=== PATIENT | male | born 1950 | race Caucasian/White ===

== ENCOUNTER 2017-02-11 09:49 | Outpatient (CLI) | payer MEDICARE, BC, OTHER ==
[2017-02-11 10:26] LABS: BASOPHILS % (AUTO) 0.2 %; EOSINOPHILS % (AUTO) 0.9 %; HGB - HEMOGLOBIN 12.3 g/dL (14.0-18.0); LYMPHOCYTES % (AUTO) 25.8 %; MEAN CORPUSCULAR HEMOGLOBIN 26.9 pg (27.0-31.0); MEAN CORPUSCULAR HGB CONC 33.4 g/dL (32.0-36.0); MEAN CORPUSCULAR VOLUME 80.5 fL (80.0-94.0); MEAN PLATELET VOLUME 6.8 fL (7.4-11.4); MONOCYTES % (AUTO) 1.1 %; NEUTROPHILS # (AUTO) 2.9 10^3/uL (1.5-6.6); PLT - PLATELET COUNT 183 10^3/uL (130-450); RED BLOOD COUNT 4.59 10^6/uL (4.70-6.10); RED CELL DISTRIBUTION WIDTH 17.8 % (12.0-15.0)
[2017-02-11 10:31] LABS: ALBUMIN/GLOBULIN RATIO 1.1 (1.0-2.2); ALKALINE PHOSPHATASE 82 IU/L (42-121); ALT ALANINE AMINOTRANSFERASE 14 IU/L (10-60); AST ASPARTATE AMINOTRANSFERASE 16 IU/L (10-42); BILIRUBIN,TOTAL 0.6 mg/dL (0.2-1.0); BUN - BLOOD UREA NITROGEN 16 mg/dL (6-20); CARBON DIOXIDE - CO2 26 mmol/L (21-32); CHLORIDE 104 mmol/L (101-111); CHOL/HDL RATIO 3.8 (<5.0); CHOLESTEROL 165 mg/dL; GFR - MDRD 75 (>89); GLUCOSE 93 mg/dL (70-100); HDL CHOLESTEROL 43 mg/dL; LDL CHOLESTEROL,CALCULATED 103 mg/dL; LDL/HDL RATIO 2.4 (<3.6); SODIUM 138 mmol/L (135-145); TOTAL PROTEIN 7.5 g/dL (6.7-8.2); VLDL CHOLESTEROL 19 mg/dL
[2017-02-12 13:36] LABS: HEPATITIS C ANTIBODY REACTIVE (NON-REACTIVE)
[2017-02-14 13:21] LABS: HCV RNA QNT <1.18 NOT DETECTED Log IU/mL (<1.18); HCV RNA QUANT RT PCR <15 NOT DETECTED IU/mL (<15)
== END 2017-02-11 09:50 | disposition home or self-care (01) ==
LOC: LAB 09:49
PROVIDERS: ATTEND Internal Medicine
DX: C91.40 Hairy cell leukemia not having achieved remission (principal); E78.5 Hyperlipidemia, unspecified; J30.9 Allergic rhinitis, unspecified; K21.9 Gastro-esophageal reflux disease without esophagitis; Z72.89 Other problems related to lifestyle
CPT/HCPCS: 36415; 80053; 80061; 85025; 86803

== ENCOUNTER 2017-02-17 08:00 | Outpatient (CLI) | payer MEDICARE, BC, OTHER | END 2017-02-17 08:01 | disposition home or self-care (01) | LOC: LAB.WCP 08:00 | PROVIDERS: ATTEND Dentist General Practice | DX: Z01.89 Encounter for other specified special examinations (principal) ==

== ENCOUNTER 2018-03-03 08:18 | Outpatient (CLI) | payer MEDICARE, BC, OTHER ==
[2018-03-03 08:36] LABS: BASOPHILS % (AUTO) 0.3 %; EOSINOPHILS % (AUTO) 1.1 %; HGB - HEMOGLOBIN 11.8 g/dL (14.0-18.0); LYMPHOCYTES # (AUTO) 0.9 10^3/uL (1.5-3.5); MEAN CORPUSCULAR HEMOGLOBIN 26.6 pg (27.0-31.0); MEAN CORPUSCULAR HGB CONC 33.5 g/dL (32.0-36.0); MEAN CORPUSCULAR VOLUME 79.6 fL (80.0-94.0); MEAN PLATELET VOLUME 6.6 fL (7.4-11.4); MONOCYTES % (AUTO) 1.5 %; NEUTROPHILS # (AUTO) 2.3 10^3/uL (1.5-6.6); NEUTROPHILS % (AUTO) 69.1 %; PLT - PLATELET COUNT 189 10^3/uL (130-450); RED BLOOD COUNT 4.44 10^6/uL (4.70-6.10); RED CELL DISTRIBUTION WIDTH 18.7 % (12.0-15.0); WHITE BLOOD COUNT 3.3 x10^3/uL (4.8-10.8)
[2018-03-03 08:57] LABS: ALBUMIN 3.9 g/dL (3.2-5.5); ALBUMIN/GLOBULIN RATIO 1.1 (1.0-2.2); ALKALINE PHOSPHATASE 72 IU/L (42-121); ALT ALANINE AMINOTRANSFERASE 15 IU/L (10-60); AST ASPARTATE AMINOTRANSFERASE 16 IU/L (10-42); BILIRUBIN,TOTAL 0.7 mg/dL (0.2-1.0); BUN - BLOOD UREA NITROGEN 17 mg/dL (6-20); CARBON DIOXIDE - CO2 26 mmol/L (21-32); CHLORIDE 102 mmol/L (101-111); CHOL/HDL RATIO 3.7 (<5.0); CHOLESTEROL 165 mg/dL; CREATININE 1.1 mg/dL (0.6-1.2); GFR - MDRD 67 (>89); GLUCOSE 91 mg/dL (70-100); HDL CHOLESTEROL 45 mg/dL; LDL CHOLESTEROL,CALCULATED 103 mg/dL; LDL/HDL RATIO 2.3 (<3.6); SODIUM 137 mmol/L (135-145); TOTAL PROTEIN 7.3 g/dL (6.7-8.2); VLDL CHOLESTEROL 17 mg/dL
[2018-03-04 13:46] LABS: HEPATITIS C ANTIBODY REACTIVE (NON-REACTIVE)
== END 2018-03-03 08:19 | disposition home or self-care (01) ==
LOC: LAB 08:18
PROVIDERS: ATTEND Internal Medicine
DX: C91.40 Hairy cell leukemia not having achieved remission (principal); E78.5 Hyperlipidemia, unspecified; R89.9 Unspecified abnormal finding in specimens from other organs, systems and tissues
CPT/HCPCS: 36415; 80053; 80061; 83721; 85025; 86803

== ENCOUNTER 2019-08-01 09:18 | Outpatient (CLI) | payer MEDICARE, BC, OTHER ==
[2019-08-01 12:28] LABS: BASOPHILS % (AUTO) 0.3 %; EOSINOPHILS % (AUTO) 0.9 %; HGB - HEMOGLOBIN 11.8 g/dL (14.0-18.0); LYMPHOCYTES % (AUTO) 28.1 %; MEAN CORPUSCULAR HEMOGLOBIN 26.5 pg (27.0-31.0); MEAN CORPUSCULAR HGB CONC 31.4 g/dL (32.0-36.0); MEAN CORPUSCULAR VOLUME 84.3 fL (80.0-94.0); MEAN PLATELET VOLUME 9.8 fL (7.4-11.4); MONOCYTES # (AUTO) 0.1 10^3/uL (0.0-1.0); MONOCYTES % (AUTO) 1.7 %; NEUTROPHILS # (AUTO) 2.4 10^3/uL (1.5-6.6); NEUTROPHILS % (AUTO) 68.7 %; PLT - PLATELET COUNT 161 10^3/uL (130-450); RED BLOOD COUNT 4.46 10^6/uL (4.70-6.10); RED CELL DISTRIBUTION WIDTH 16.5 % (12.0-15.0); WHITE BLOOD COUNT 3.5 x10^3/uL (4.8-10.8)
[2019-08-01 13:03] LABS: ALBUMIN 3.8 g/dL (3.2-5.5); ALBUMIN/GLOBULIN RATIO 1.1 (1.0-2.2); ALKALINE PHOSPHATASE 72 IU/L (42-121); ALT ALANINE AMINOTRANSFERASE 13 IU/L (10-60); AST ASPARTATE AMINOTRANSFERASE 14 IU/L (10-42); BILIRUBIN,TOTAL 0.8 mg/dL (0.2-1.0); BUN - BLOOD UREA NITROGEN 17 mg/dL (6-20); CALCIUM 9.5 mg/dL (8.5-10.3); CARBON DIOXIDE - CO2 27 mmol/L (21-32); CHLORIDE 99 mmol/L (101-111); CHOL/HDL RATIO 4.2 (<5.0); CHOLESTEROL 166 mg/dL; CREATININE 1.1 mg/dL (0.6-1.2); GLUCOSE 92 mg/dL (70-100); HDL CHOLESTEROL 40 mg/dL; LDL CHOLESTEROL,CALCULATED 102 mg/dL; LDL/HDL RATIO 2.6 (<3.6); SODIUM 140 mmol/L (135-145); TOTAL PROTEIN 7.2 g/dL (6.7-8.2); VLDL CHOLESTEROL 24 mg/dL
== END 2019-08-01 23:59 | disposition home or self-care (01) ==
LOC: LAB.WCP 09:18
PROVIDERS: ATTEND Nurse Practitioner Family
DX: E78.5 Hyperlipidemia, unspecified (principal); C91.40 Hairy cell leukemia not having achieved remission
CPT/HCPCS: 36415; 80053; 80061; 83721; 85025

== ENCOUNTER 2019-12-22 11:56 | Outpatient (CLI) | payer MEDICARE, BC, OTHER ==
[2019-12-22 12:56] LABS: THYROID STIMULATING HORMONE 1.35 uIU/mL (0.34-5.60)
[2019-12-22 12:58] LABS: FREE T3 2.87 pg/mL (2.5-3.9); FREE T4 (FREE THYROXINE) 0.9 ng/dL (0.58-1.64)
== END 2019-12-22 11:57 | disposition home or self-care (01) ==
LOC: LAB 11:56
PROVIDERS: ATTEND Family Medicine
DX: R06.09 Other forms of dyspnea (principal); M45.9 Ankylosing spondylitis of unspecified sites in spine; N52.9 Male erectile dysfunction, unspecified
CPT/HCPCS: 36415; 83880; 84403; 84439; 84443; 84481; 85651; 86140

== ENCOUNTER 2020-03-20 14:59 | Outpatient (CLI) | payer MEDICARE, BC, OTHER ==
--- NOTE | 2020-03-20 15:34 | XRAY Report ---
PROCEDURE: Chest 2 View X-Ray INDICATIONS: OTHER FORMS OF DYSPNEA TECHNIQUE: 2 view(s) of the chest. COMPARISON: 12/27/2013. FINDINGS: Surgical changes and devices: None. Lungs and pleura: No pleural effusions or pneumothorax. Lungs are clear. Mediastinum: Mediastinal contours are normal. Heart size is normal. Bones and chest wall: No suspicious bony abnormalities. Soft tissues appear unremarkable. Diffuse osteopenia. Multilevel thoracic spondylosis. No acute compression fractures noted. IMPRESSION: Chest without acute cardiopulmonary abnormalities. Reviewed by: Magdaleno Watters MD on 03/20/2020 3:33 PM PST Approved by: Magdaleno Watters MD on 03/20/2020 3:33 PM PST Station ID: [id number]
== END 2020-03-20 15:00 | disposition home or self-care (01) ==
LOC: DI 14:59
PROVIDERS: ATTEND Family Medicine
DX: R06.09 Other forms of dyspnea (principal)

== ENCOUNTER 2020-06-22 08:50 | Outpatient (CLI) | payer MEDICARE, BC, OTHER ==
[2020-06-22 09:26] LABS: EOSINOPHILS # (AUTO) 0.1 10^3/uL (0.0-0.7); EOSINOPHILS % (AUTO) 1.6 %; HCT - HEMATOCRIT 36.3 % (42.0-52.0); HGB - HEMOGLOBIN 11.7 g/dL (14.0-18.0); LYMPHOCYTES # (AUTO) 0.7 10^3/uL (1.5-3.5); LYMPHOCYTES % (AUTO) 21.8 %; MEAN CORPUSCULAR HEMOGLOBIN 26.8 pg (27.0-31.0); MEAN CORPUSCULAR HGB CONC 32.2 g/dL (32.0-36.0); MEAN CORPUSCULAR VOLUME 83.3 fL (80.0-94.0); MEAN PLATELET VOLUME 8.3 fL (7.4-11.4); MONOCYTES # (AUTO) 0.1 10^3/uL (0.0-1.0); MONOCYTES % (AUTO) 1.9 %; NEUTROPHILS # (AUTO) 2.4 10^3/uL (1.5-6.6); NEUTROPHILS % (AUTO) 74.4 %; PLT - PLATELET COUNT 160 10^3/uL (130-450); RED BLOOD COUNT 4.36 10^6/uL (4.70-6.10); RED CELL DISTRIBUTION WIDTH 16.8 % (12.0-15.0); WHITE BLOOD COUNT 3.2 x10^3/uL (4.8-10.8)
[2020-06-22 09:45] LABS: ALBUMIN/GLOBULIN RATIO 1.3 (1.0-2.2); BILIRUBIN,TOTAL 0.6 mg/dL (0.2-1.0); POTASSIUM 4.3 mmol/L (3.5-5.0); TOTAL PROTEIN 7.2 g/dL (6.7-8.2)
[2020-06-22 10:01] LABS: THYROID STIMULATING HORMONE 1.82 uIU/mL (0.34-5.60)
== END 2020-06-22 08:51 | disposition home or self-care (01) ==
LOC: LAB 08:50
PROVIDERS: ATTEND Family Medicine
DX: E29.1 Testicular hypofunction (principal); M62.81 Muscle weakness (generalized)
CPT/HCPCS: 36415; 80053; 84403; 84443; 85025

== ENCOUNTER 2020-09-17 07:45 | Outpatient (CLI) | payer MEDICARE, BC, OTHER ==
[2020-09-17 08:24] LABS: BUN - BLOOD UREA NITROGEN 18 mg/dL (6-20); CARBON DIOXIDE - CO2 26 mmol/L (21-32); CHLORIDE 106 mmol/L (101-111); CHOL/HDL RATIO 4.4 (<5.0); CHOLESTEROL 183 mg/dL; GFR - MDRD 74 (>89); GLUCOSE 95 mg/dL (70-100); HDL CHOLESTEROL 42 mg/dL; LDL CHOLESTEROL,CALCULATED 123 mg/dL; LDL/HDL RATIO 2.9 (<3.6); POTASSIUM 4.2 mmol/L (3.5-5.0); SODIUM 139 mmol/L (135-145); TRIGLYCERIDES 88 mg/dL; VLDL CHOLESTEROL 18 mg/dL
== END 2020-09-17 07:46 | disposition home or self-care (01) ==
LOC: LAB 07:45
PROVIDERS: ATTEND Family Medicine
DX: E29.1 Testicular hypofunction (principal); E78.5 Hyperlipidemia, unspecified
CPT/HCPCS: 36415; 80048; 80061; 83721; 84403

== ENCOUNTER 2020-12-13 08:00 | Outpatient (CLI) | payer MEDICARE, BC, OTHER ==
[2020-12-13 12:06] LABS: BASOPHILS % (AUTO) 0.3 %; EOSINOPHILS % (AUTO) 1.3 %; HCT - HEMATOCRIT 38.8 % (42.0-52.0); HGB - HEMOGLOBIN 12.2 g/dL (14.0-18.0); LYMPHOCYTES # (AUTO) 0.8 10^3/uL (1.5-3.5); LYMPHOCYTES % (AUTO) 24.8 %; MEAN CORPUSCULAR HEMOGLOBIN 26.9 pg (27.0-31.0); MEAN CORPUSCULAR HGB CONC 31.4 g/dL (32.0-36.0); MEAN CORPUSCULAR VOLUME 85.7 fL (80.0-94.0); MEAN PLATELET VOLUME 9.7 fL (7.4-11.4); MONOCYTES # (AUTO) 0.1 10^3/uL (0.0-1.0); MONOCYTES % (AUTO) 2.2 %; NEUTROPHILS # (AUTO) 2.3 10^3/uL (1.5-6.6); NEUTROPHILS % (AUTO) 71.1 %; PLT - PLATELET COUNT 183 10^3/uL (130-450); RED BLOOD COUNT 4.53 10^6/uL (4.70-6.10); RED CELL DISTRIBUTION WIDTH 16.3 % (12.0-15.0); WHITE BLOOD COUNT 3.2 x10^3/uL (4.8-10.8)
[2020-12-13 13:25] LABS: THYROID STIMULATING HORMONE 2.12 uIU/mL (0.34-5.60)
[2020-12-13 13:28] LABS: ALBUMIN 3.9 g/dL (3.2-5.5); ALBUMIN/GLOBULIN RATIO 1.2 (1.0-2.2); ALKALINE PHOSPHATASE 74 IU/L (42-121); ALT ALANINE AMINOTRANSFERASE 15 IU/L (10-60); AST ASPARTATE AMINOTRANSFERASE 16 IU/L (10-42); BILIRUBIN,TOTAL 0.7 mg/dL (0.2-1.0); BUN - BLOOD UREA NITROGEN 22 mg/dL (6-20); CALCIUM 9.1 mg/dL (8.5-10.3); CARBON DIOXIDE - CO2 28 mmol/L (21-32); CHLORIDE 103 mmol/L (101-111); CHOL/HDL RATIO 4.4 (<5.0); CHOLESTEROL 186 mg/dL; CREATININE 1.1 mg/dL (0.6-1.2); GFR - MDRD 66 (>89); GLUCOSE 94 mg/dL (70-100); HDL CHOLESTEROL 42 mg/dL; LDL CHOLESTEROL,CALCULATED 123 mg/dL; LDL/HDL RATIO 2.9 (<3.6); POTASSIUM 4.2 mmol/L (3.5-5.0); SODIUM 140 mmol/L (135-145); TOTAL PROTEIN 7.1 g/dL (6.7-8.2); TRIGLYCERIDES 105 mg/dL; VLDL CHOLESTEROL 21 mg/dL
== END 2020-12-13 23:59 | disposition home or self-care (01) ==
LOC: LAB.WCP 08:00
PROVIDERS: ATTEND Family Medicine
DX: R53.81 Other malaise (principal); E29.1 Testicular hypofunction; C91.40 Hairy cell leukemia not having achieved remission; M45.9 Ankylosing spondylitis of unspecified sites in spine; E78.5 Hyperlipidemia, unspecified; K21.9 Gastro-esophageal reflux disease without esophagitis
CPT/HCPCS: 36415; 80053; 80061; 83721; 84153; 84403; 84443; 85025

== ENCOUNTER 2022-11-19 15:01 | Outpatient (CLI) | payer MEDICARE, BC ==
--- NOTE | 2022-11-19 17:59 | XRAY Report ---
PROCEDURE: Knee 4 View RT INDICATIONS: DJD,KNEE TECHNIQUE: 4 views of the right knee(s) were acquired. COMPARISON: None. FINDINGS: Bones: Mild to moderate degenerative changes, particularly the medial compartment and patellofemoral compartment. No displaced fracture or dislocation. Soft tissues: Possible small knee joint effusion. IMPRESSION: Mild to moderate degenerative changes. If there is high concern for further derangement, consider MRI evaluation. Reviewed by: Shady Tracy MD on 11/19/2022 5:58 PM PDT Approved by: Shady Tracy MD on 11/19/2022 5:58 PM PDT Station ID: [id number]
== END 2022-11-19 15:02 | disposition home or self-care (01) ==
LOC: DI.S 15:01 → MERGE 15:01 → DI.S 15:02
PROVIDERS: ATTEND Nurse Practitioner
DX: M17.11 Unilateral primary osteoarthritis, right knee (principal)

== ENCOUNTER 2023-01-21 08:00 | Outpatient (CLI) | payer MEDICARE, BC, OTHER | END 2023-01-21 23:59 | disposition home or self-care (01) | LOC: LAB 08:00 | PROVIDERS: ATTEND Nurse Practitioner | DX: Z48.817 Encounter for surgical aftercare following surgery on the skin and subcutaneous tissue (principal) | CPT/HCPCS: 87070; 87205 ==

== ENCOUNTER 2023-04-28 07:49 | Outpatient (CLI) | payer MEDICARE, OTHER ==
--- NOTE | 2023-04-28 07:46 | CARDIAC PROCEDURE NOTE ---
Stress Test Report Service Date: 04/28/23 Service Time: 08:00 Ordering Provider: Tahira Bishop ARNP Indication for Test: Assess exertional dyspnea. Significant Medical History: Daniel is referred for a treadmill stress echocardiogram today, to assess his exertional dyspnea. This is a chronic problem which was evaluated with a treadmill stress myocardial perfusion imaging study in February 2014, that demonstrated no evidence of ischemia. He tells me that the symptoms have worsened over the past few months. 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 He reports experiencing dyspnea, typically at the beginning of exercise, and sometimes he is able to regain a level of comfort and continue for more extended periods, but sometimes he develops lightheadedness and has to markedly reduce the intensity of his exercise. 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 He denies associated chest discomfort at any time with the shortness of breath. He has stage IV Sidhu's esophagus and is on 2 antiacid medications with some intermittent dyspepsia. He has been on aspirin that was recommended 15 to 20 years ago as a primary preventive for cardiovascular disease. Cardiac Risk Factors: Positive for hyperlipemia and family history of CAD in father; negative for history of hypertension, diabetes and significant tobacco smoking history (quit 35 yrs ago). Type of Stress Test: ETT with Echocardiography Procedure: -Exercise Treadmill Test- After signing informed consent, the patient underwent echo imaging at rest and then performed treadmill exercise using a Sreedhar protocol. The patient exercised for exactly 5 minutes and achieved a peak heart rate of 136 (92 percent predicted maximum heart rate for age), and an estimated workload of 7.0 METS. The test was terminated due to fatigue/shortness of breath. Resting heart rate: 82 Peak heart rate: 136 Normal response to exercise. Resting BP: 121/68 Peak BP: 164/65 Normal response of systolic and diastolic BPs to exercise. Room air oxygen saturation remained between 98-99%. Rhythm during exercise: Sinus rhythm throughout, with occasional isolated PVCs (49 total). Symptoms: The patient reported bilateral shoulder tightness in stage I of exercise followed by a feeling of his "lungs burning" in stage II. Progressive dyspnea became limiting. EKG at rest showed normal sinus rhythm with diffusely low QRS voltages, with possible left atrial abnormality, and with interpretable ST/T pattern throughout. EKG at peak stress showed no ischemia by EKG criteria. In Recovery HR rapidly/normally decreased toward resting level with slower decrease in BP. Echo imaging, performed at rest and with stress, will be reported separately. Pedro Mason MD, was present throughout this treadmill stress study and supervised it in its entirety. Summary: 1) Exercise tolerance significantly reduced for age and sex as evidenced by DEVON of 17%. 2) Normal/interpretable resting EKG. 3) Adequate level of exercise was achieved on this treadmill stress test. 4) Normal BP response to exercise. 5) No ischemic changes by EKG criteria were seen at peak stress. 6) Interpretation of technically suboptimal echo images reveals normal left ventricular size, wall thickness and systolic function, with appropriate hyperdynamic augmentation of all segments with exercise, indicating no evidence of prior infarct or inducible ischemia. Given that some views were obtained at sub-diagnostic heart rates, the possibility of ischemia at higher rates cannot be excluded. No significant valvular abnormality or elevation of estimated pulmonary artery systolic pressure seen on screening study. See separate report for more details. Conclusions and Recommendations: 1) Troy demonstrated reduced exercise time due to dyspnea, without EKG or echocardiographic evidence of inducible ischemia. 2) We discussed exposures many years ago to tobacco smoke and radiation as possible contributors to chronic lung disease, which might be further elucidated with formal pulmonary function testing, which he has not had in the past. 3) Although a daily baby ASA was recommended many years ago for primary prevention, subsequent data interpretation has concluded a lack of benefit and it could possibly have adverse effects on his erosive GIT disease and blood dyscrasia, so it should likely be discontinued.
== END 2023-04-28 07:50 | disposition home or self-care (01) ==
LOC: DI 07:49
PROVIDERS: ATTEND Nurse Practitioner
DX: R06.02 Shortness of breath (principal); E78.5 Hyperlipidemia, unspecified; Z82.49 Family history of ischemic heart disease and other diseases of the circulatory system; Z87.891 Personal history of nicotine dependence
CPT/HCPCS: 93350

== ENCOUNTER 2023-06-01 12:45 | Outpatient (CLI) | payer MEDICARE, OTHER ==
[2023-06-01] MEDS: ALBUTEROL 1 PUFF INH STA (14:16)
== END 2023-06-01 12:46 | disposition home or self-care (01) ==
LOC: RT 12:45
PROVIDERS: ATTEND Nurse Practitioner
DX: R06.02 Shortness of breath (principal)
CPT/HCPCS: 94060; 94729

== ENCOUNTER 2023-06-30 14:29 | Outpatient (CLI) | payer MEDICARE, OTHER ==
--- NOTE | 2023-06-30 21:42 | CT Report ---
PROCEDURE: Chest WO INDICATIONS: SHORT OF BREATH TECHNIQUE: A CT scan of the chest was performed. Intravenous contrast media was not administered. Images were re corded and evaluated at appropriate window settings. Reformats: axial MIP of the chest, coronal and s agittal. For radiation dose reduction, the following was used: automated exposure control, adjustment of mA and/or kV according to patient size. COMPARISON: Chest x-ray 03/20/2020, CT chest 01/29/2015 FINDINGS: Image quality: Diagnostic. Chest wall and lower neck: No thyroid nodule which requires sonographic follow up. No axillary or sup raclavicular adenopathy by size. Lungs and pleura: No consolidation. No pleural effusions. No pneumothorax. No suspicious pulmonary n odules which require follow up. Mediastinum: Heart size is normal. No pericardial effusion. No large vessel abnormality. No mediastin al adenopathy by size criteria. Bones: No aggressive osseous abnormality. Upper Abdomen: Unremarkable. IMPRESSION: Lungs are clear. Reviewed by: Carmen Gipson MD on 06/30/2023 9:41 PM PDT Approved by: Carmen Gipson MD on 06/30/2023 9:41 PM PDT Station ID: [id number]
== END 2023-06-30 14:30 | disposition home or self-care (01) ==
LOC: DI 14:29
PROVIDERS: ATTEND Nurse Practitioner
DX: R06.02 Shortness of breath (principal)

== ENCOUNTER 2023-10-01 08:00 | Outpatient (CLI) | payer MEDICARE, OTHER | END 2023-10-01 23:59 | disposition home or self-care (01) | LOC: LAB.N 08:00 | PROVIDERS: ATTEND Physician Assistant Medical | DX: S91.302A Unspecified open wound, left foot, initial encounter (principal) | CPT/HCPCS: 87070; 87205 ==

== ENCOUNTER 2023-10-06 11:17 | Outpatient (CLI) | payer MEDICARE, OTHER ==
[2023-10-06 11:31] LABS: BILIRUBIN,URINE NEGATIVE (NEGATIVE); GLUCOSE, URINE (UA) NEGATIVE (NEGATIVE); KETONES,URINE (UA) NEGATIVE (NEGATIVE); LEUKOCYTE ESTERASE, URINE NEGATIVE (NEGATIVE); NITRITE,URINE NEGATIVE (NEGATIVE); OCCULT BLOOD,URINE NEGATIVE (NEGATIVE); PROTEIN,URINE NEGATIVE (NEGATIVE); UROBILINOGEN,URINE 0.2 (NORMAL) E.U./dL (NORMAL)
[2023-10-06 11:33] LABS: EOSINOPHILS % (AUTO) 0.4 %; HCT - HEMATOCRIT 35.2 % (42.0-52.0); HGB - HEMOGLOBIN 11.2 g/dL (14.0-18.0); LYMPHOCYTES # (AUTO) 0.4 10^3/uL (1.5-3.5); MEAN CORPUSCULAR HEMOGLOBIN 27.2 pg (27.0-31.0); MEAN CORPUSCULAR HGB CONC 31.8 g/dL (32.0-36.0); MEAN CORPUSCULAR VOLUME 85.4 fL (80.0-94.0); MONOCYTES % (AUTO) 1.2 %; PLT - PLATELET COUNT 192 10^3/uL (130-450); RED BLOOD COUNT 4.12 10^6/uL (4.70-6.10); RED CELL DISTRIBUTION WIDTH 15.9 % (12.0-15.0); WHITE BLOOD COUNT 2.4 x10^3/uL (4.8-10.8)
[2023-10-06 11:36] LABS: SLIDE REVIEW? Indicated
[2023-10-06 11:43] LABS: BACTERIA,URINE Rare /HPF (None Seen); CLARITY,URINE CLEAR (CLEAR); RBC,URINE 0-5 /HPF (0-5); SQUAMOUS EPITHELIAL CELL,UR RARE Squamous (<= Few); WBC,URINE 0-3 /HPF (0-3)
[2023-10-06 11:49] LABS: ALBUMIN 3.3 g/dL (3.2-5.5); ALBUMIN/GLOBULIN RATIO 1.1 (1.0-2.2); BILIRUBIN,TOTAL 0.3 mg/dL (0.2-1.0); CALCIUM 8.8 mg/dL (8.5-10.3); CREATININE 1.1 mg/dL (0.6-1.3); CRP - C-REACTIVE PROTEIN 2.7 mg/dL (<0.5); TOTAL PROTEIN 6.3 g/dL (6.4-8.9)
[2023-10-06 12:37] LABS: RBC MORPHOLOGY (MULTIPLE) 2+ ANISOCYTOSIS (NORMAL)
[2023-10-07 21:08] LABS: ANTINUCLEAR ANTIBODIES IFA Negative (.)
== END 2023-10-06 11:18 | disposition home or self-care (01) ==
LOC: LAB 11:17
PROVIDERS: ATTEND Nurse Practitioner
DX: I77.6 Arteritis, unspecified (principal); C91.40 Hairy cell leukemia not having achieved remission; R53.83 Other fatigue; R61 Generalized hyperhidrosis
CPT/HCPCS: 36415; 80053; 81001; 82728; 85025; 85651; 86038; 86140; 87086